=== PATIENT | male | born 1965 | race Caucasian/White ===

== ENCOUNTER 2018-02-16 09:34 | Day surgery (SDC) | payer MEDICARE ==
[2018-02-16] MEDS ORDERED: LIDOCAINE 2% MDV (20MG/ML) 20ML VIAL IV ONE (09:35)
[2018-02-16] MEDS ORDERED: PROPOFOL 10 MG/ML VIAL IV ONE (09:35)
--- NOTE | 2018-02-16 14:50 | Operative Note ---
DATE OF SURGERY: 02/16/2018 OPERATION: COLONOSCOPY to the cecum with cold biopsy forceps polypectomy x1. INDICATION: Colorectal cancer screening. ANESTHESIA: Intravenous sedation was administered by the department of anesthesiology and included Diprivan titrated to effect. PROCEDURE: Following informed consent from this alert individual including a discussion of the risks and benefits of the procedure and an opportunity for the patient to ask questions, the patient was in the left lateral decubitus position. A digital rectal examination was performed. No abnormalities were noted. Following this, the Olympus [id number] video colonoscope was inserted into the rectum without resistance. The rectal mucosa had a normal appearance with normal folds and distensibility. The colonoscope was advanced up through the bowel to the level of the cecum without much difficulty. Throughout the remainder of the bowel, the mucosa appeared normal, the folds were normal, and the bowel was fairly well distensible. There were a few scattered diverticula noted in the sigmoid region. The cecum was well defined by noting the appendiceal orifice and ileocecal valve. The colon preparation was good. Retroflexion in the cecum was unremarkable. From this point, the colonoscope was then withdrawn. Again no changes were noted except for the above-mentioned mild diverticulosis in the sigmoid region and a diminutive 3 mm polyp noted in the sigmoid colon which was removed with cold biopsy forceps. Retroflexion in the rectum revealed small internal hemorrhoids. The endoscope was straightened and removed. The patient tolerated the procedure well and was returned to the recovery area in stable condition. IMPRESSION: 1. Sigmoid diverticulosis. 2. Diminutive 3 mm polyp removed from the sigmoid colon with biopsy forceps. 3. Small internal hemorrhoids. RECOMMENDATIONS: Further recommendations will be forthcoming pending results of pathology obtained today. The patient will be following up with Wood Cooper DO. As always, thank you for allowing me to participate in the care of your patient. CC: Wood Cooper DO [email or web address]
== END 2018-02-16 11:59 | disposition home or self-care (01) ==
LOC: HOP 09:34
PROVIDERS: ATTEND Internal Medicine Gastroenterology
DX: Z12.11 Encounter for screening for malignant neoplasm of colon (principal); K63.5 Polyp of colon; I10 Essential (primary) hypertension; E78.00 Pure hypercholesterolemia, unspecified; K57.30 Diverticulosis of large intestine without perforation or abscess without bleeding; K64.9 Unspecified hemorrhoids